=== PATIENT | male | born 1990 | race African-American/Black ===

== ENCOUNTER 2021-04-27 10:34 | Emergency (ER) | payer OTHER ==
[~2021-04-27] VITALS: Ht 172.7 cm; Wt 74.8 kg
--- NOTE | 2021-04-27 10:50 | NUR ---
C/O CHEST DISCOMFORT WITH LT ARM PRESSURE & ELEVATED BP SINCE STARTING C/O CHEST DISCOMFORT WITH LT ARM PRESSURE & ELEVATED BP SINCE STARTING. THE PATIENT DENIES HAVING CHEST PAIN AT THIS TIME. IN ROOM AIR AND DENIES SOB. RESPIRATION REGULAR AND UNLABORED. ATTACHED TO THE MONITOR.
[2021-04-27 11:01] VITALS: BP 136/75
--- NOTE | 2021-04-27 11:01 | NUR ---
Patient discharged to home in stable condition. Written and verbal after care instructions given. Patient verbalizes understanding of instruction.
== END 2021-04-27 11:02 | disposition home or self-care (01) ==
LOC: ER 10:48
DX: I10 Essential (primary) hypertension (principal); F32.9 Major depressive disorder, single episode, unspecified; F41.9 Anxiety disorder, unspecified; Z60.2 Problems related to living alone